=== PATIENT | female | born 1980 | race Caucasian/White ===

== ENCOUNTER → 2021-10-09 | Outpatient (CLI) | payer MEDICARE ==
[~2021-10-09] MED LIST: ATIVAN1 MG PO; FLEXERIL10 MG PO; HCTZ PO; LEXAPRO20 MG PO; LISINOPRIL PO; ULTRAM50 MG PO; VICODIN 500 MG-1 TAB PO
== END | disposition home or self-care (01) ==
LOC: CARD 07:43
PROVIDERS: ATTEND Physician Assistant
DX: Z79.899 Other long term (current) drug therapy (principal)